=== PATIENT | female | born 1990 | race Caucasian/White ===

== ENCOUNTER 2022-02-02 14:44 | Inpatient (IN) | payer MEDICAID, OTHER ==
[~2022-02-02] VITALS: Ht 175.3 cm; Wt 78.5 kg
[2022-02-02] MEDS ORDERED: LORazepam 2 MG TABLET PO ONE (16:30)
[2022-02-02 16:46] LABS: COVID AG,FIA SOURCE NASOPHARYNGEAL
[2022-02-02 16:58] LABS: AMPHET/METH SCREEN,URINE NEGATIVE (NEGATIVE); BARBITURATE SCREEN, URINE NEGATIVE (NEGATIVE); BENZODIAZEPINES SCREEN,URINE NEGATIVE (NEGATIVE); CANNABINOID SCREEN,URINE NEGATIVE (NEGATIVE); COCAINE SCREEN,URINE NEGATIVE (NEGATIVE); METHADONE SCREEN, URINE NEGATIVE (NEGATIVE); OPIATE SCREEN,URINE NEGATIVE (NEGATIVE); PHENCYCLIDINE SCREEN,URINE NEGATIVE (NEGATIVE)
[2022-02-02 17:00] LABS: BASOPHILS % (AUTO) 2.2 % (0.0-2.0); EOSINOPHILS % (AUTO) 3.5 % (1.0-6.0); HEMATOCRIT 42.4 % (41-53); HEMOGLOBIN 14.6 g/dL (13.5-17.5); LYMPHOCYTES # (AUTO) 1.6 K/uL (1.0-4.8); MEAN CORPUSCULAR HEMOGLOBIN 30.8 pg (26.0-34.0); MEAN CORPUSCULAR HGB CONC 34.5 G/dL (31.0-37.0); MEAN CORPUSCULAR VOLUME 89 fL (80-100); MONOCYTES # (AUTO) 0.5 K/uL (0.1-1.0); MONOCYTES % (AUTO) 5.6 % (2.0-9.0); NEUTROPHILS # (AUTO) 5.9 K/uL (1.8-7.7); NEUTROPHILS % (AUTO) 69.7 % (40.0-70.0); PLATELET COUNT (AUTO) 212 K/uL (150-450); RED BLOOD CELL COUNT(AUTO) 4.75 MIL/uL (4.50-5.90); RED CELL DISTRIBUTION WIDTH 12.6 % (11.5-14.5)
[2022-02-02 17:08] LABS: ANION GAP 7 mmol/L (8-16); CALCIUM, TOTAL 9.4 mg/dL (8.8-10.5); CARBON DIOXIDE 27 mmol/L (22-29); CHLORIDE 103 mmol/L (98-107); CREATININE 0.88 mg/dL (0.60-1.30); GLOMERULAR FILTR. RATE CALC > 60 mL/min (>60); GLUCOSE,RANDOM 96 mg/dL (70-110); POTASSIUM 3.8 mmol/L (3.5-5.1); SODIUM SERUM 137 mmol/L (136-145); UREA NITROGEN, BLOOD 14 mg/dL (7-18)
[2022-02-02 17:14] LABS: ALANINE AMINOTRANSFERASE 29 U/L (12-78); ALBUMIN 4.2 g/dL (3.4-5.0); ALKALINE PHOSPHATASE 52 U/L (46-116); ASPARTATE AMINOTRANSFERASE 19 U/L (15-37); BILIRUBIN,TOTAL 0.3 mg/dL (0.1-1.0); TOTAL PROTEIN, SERUM 7.1 g/dL (6.4-8.2)
[2022-02-02 17:16] LABS: VALPROIC ACID < 3 mcg/mL (50-100)
[2022-02-02 17:17] LABS: LITHIUM 0.25 mmol/L (0.60-1.20)
[2022-02-02] MEDS ORDERED: HALOPERIDOL 5 MG TABLET PO PRN (17:30)
[2022-02-02] MEDS ORDERED: ZOLPIDEM TARTRATE 10 MG TABLET PO PRN (17:30)
[2022-02-02] MEDS ORDERED: MELA5TAB21 PO (17:45)
[2022-02-02] MEDS ORDERED: HYDR-4527 PO (17:45)
[2022-02-02] MEDS ORDERED: LITH450CRT PO (17:45)
[2022-02-02] MEDS ORDERED: ESTR2TAB6 PO (17:45)
[2022-02-02] MEDS ORDERED: FINA-27 PO (17:45)
[2022-02-02 20:22] VITALS: BP 101/61
[2022-02-02] MEDS ORDERED: PNEUMOCOCCAL VACCINE POLYVALENT 0.5 ML VIAL [PPSV23] IM. ONE (20:30)
[2022-02-03 00:51] VITALS: BP 103/62
[2022-02-03 08:03] LABS: CHOL/HDL RATIO 3.5 (4.2-7.3); FREE T4 (FREE THYROXINE) 0.88 ng/dL (0.76-1.46); THYROID STIMULATING HORMONE 0.95 uIU/mL (0.36-3.74)
[2022-02-03] MEDS ORDERED: DiphenhydrAMINE HCL 50 MG/ML VIAL ONE (10:54)
[2022-02-03] MEDS ORDERED: ChlorproMAZINE HCL 50 MG/2 ML AMP ONE (10:54)
[2022-02-03] MEDS ORDERED: LORazepam 2 MG/ML VIAL ONE (10:54)
[2022-02-03] MEDS ORDERED: DiphenhydrAMINE HCL 50 MG/ML VIAL IM ONE (11:00)
[2022-02-03] MEDS ORDERED: LORazepam 2 MG/ML VIAL IM ONE (11:00)
[2022-02-03] MEDS ORDERED: ChlorproMAZINE HCL 50 MG/2 ML AMP IM ONE (11:00)
[2022-02-03] MEDS: FINASTERIDE 5 MG TABLET PO SCH (12:31)
[2022-02-03] MEDS: ESTRADIOL 1 MG TABLET PO SCH (12:31)
[2022-02-03] MEDS: LITHIUM CARBONATE 450 MG ER TABLET PO SCH ×2 (12:31→16:19)
[2022-02-03 13:18] VITALS: BP 115/68
[2022-02-03] MEDS: MELATONIN 5 MG TABLET PO SCH (20:15)
[2022-02-03] MEDS ORDERED: ONDANSETRON HCL 4 MG TABLET PO PRN (21:15)
[2022-02-03] MEDS ORDERED: NICOTINE 14 MG/24 HOUR PATCH TD PRN (21:15)
[2022-02-03] MEDS ORDERED: CloNIDine HCL 0.1 MG TABLET PO PRN (21:15)
[2022-02-03] MEDS ORDERED: GuaiFENesin/D-METHORPHAN [SUGAR-FREE] 200-20MG/10 ML SYRUP UDCUP PO PRN (21:15)
[2022-02-03] MEDS ORDERED: ACETAMINOPHEN 325 MG TABLET PO PRN (21:15)
[2022-02-03] MEDS ORDERED: MAG HYDROX/AL HYDROX/SIMETH ES 30 ML SUSPENSION UDCUP PO PRN (21:15)
[2022-02-03] MEDS ORDERED: ALBUTEROL SULFATE HFA 90 MCG/PUFF 8 GM INHALER IH PRN (21:15)
[2022-02-03] MEDS ORDERED: LOPERAMIDE HCL 2 MG CAPSULE PO PRN (21:15)
[2022-02-03] MEDS ORDERED: MAGNESIUM HYDROXIDE SUSPENSION 30 ML UDCUP PO PRN (21:15)
[2022-02-03] MEDS ORDERED: PETROLATUM,WHITE 28 GM JELLY TP PRN (21:15)
[2022-02-03] MEDS ORDERED: IBUPROFEN 400 MG TABLET PO PRN (21:15)
[2022-02-03] MEDS ORDERED: DOCUSATE SODIUM 100 MG CAPSULE PO PRN (21:15)
[2022-02-04] MEDS ORDERED: DiphenhydrAMINE HCL 50 MG/ML VIAL IM ONE ×2 (04:30→17:45)
[2022-02-04] MEDS ORDERED: ChlorproMAZINE HCL 50 MG/2 ML AMP IM ONE ×2 (04:30→17:45)
[2022-02-04] MEDS ORDERED: LORazepam 2 MG/ML VIAL IM ONE ×2 (04:30→17:45)
[2022-02-04] MEDS: FINASTERIDE 5 MG TABLET PO SCH (08:40)
[2022-02-04] MEDS: LITHIUM CARBONATE 450 MG ER TABLET PO SCH ×2 (08:40→17:00)
[2022-02-04] MEDS: ESTRADIOL 1 MG TABLET PO SCH (08:40)
[2022-02-04] MEDS: LORazepam 2 MG TABLET PO PRN (08:43)
[2022-02-04 10:57] VITALS: BP 118/67
[2022-02-04 14:21] VITALS: BP 129/71
[2022-02-04 16:18] VITALS: BP 100/63
[2022-02-04] MEDS: QUEtiapine FUMARATE 200 MG TABLET PO SCH (21:00)
[2022-02-04] MEDS: MELATONIN 5 MG TABLET PO SCH (21:00)
[2022-02-05] MEDS: LORazepam 2 MG TABLET PO PRN ×4 (02:37→16:33)
[2022-02-05] MEDS: LITHIUM CARBONATE 450 MG ER TABLET PO SCH ×2 (08:14→16:33)
[2022-02-05] MEDS: ESTRADIOL 1 MG TABLET PO SCH (08:14)
[2022-02-05] MEDS: FINASTERIDE 5 MG TABLET PO SCH (08:14)
[2022-02-05 08:16] VITALS: BP 119/73
[2022-02-05 16:05] VITALS: BP 132/76
[2022-02-05] MEDS: QUEtiapine FUMARATE 200 MG TABLET PO SCH (21:00)
[2022-02-05] MEDS: MELATONIN 5 MG TABLET PO SCH (21:00)
[2022-02-06] MEDS: LORazepam 2 MG TABLET PO PRN ×3 (06:37→16:40)
[2022-02-06] MEDS: FINASTERIDE 5 MG TABLET PO SCH (08:07)
[2022-02-06] MEDS: ESTRADIOL 1 MG TABLET PO SCH (08:07)
[2022-02-06] MEDS: LITHIUM CARBONATE 450 MG ER TABLET PO SCH ×2 (08:07→16:40)
[2022-02-06 08:19] VITALS: BP 120/71
[2022-02-06] MEDS: MELATONIN 5 MG TABLET PO SCH (20:12)
[2022-02-06] MEDS: QUEtiapine FUMARATE 200 MG TABLET PO SCH (20:12)
[2022-02-07] MEDS: LORazepam 2 MG TABLET PO PRN ×2 (08:22→15:57)
[2022-02-07 08:43] VITALS: BP 151/86
[2022-02-07] MEDS: FINASTERIDE 5 MG TABLET PO SCH (09:10)
[2022-02-07] MEDS: ESTRADIOL 1 MG TABLET PO SCH (09:10)
[2022-02-07] MEDS: LITHIUM CARBONATE 450 MG ER TABLET PO SCH ×2 (09:10→17:24)
[2022-02-07 16:12] VITALS: BP 139/88
[2022-02-07] MEDS: QUEtiapine FUMARATE 200 MG TABLET PO SCH ×2 (20:18→20:23)
[2022-02-07] MEDS: MELATONIN 5 MG TABLET PO SCH (20:18)
[2022-02-08] MEDS: LITHIUM CARBONATE 450 MG ER TABLET PO SCH ×2 (08:36→17:10)
[2022-02-08] MEDS: ESTRADIOL 1 MG TABLET PO SCH (08:37)
[2022-02-08] MEDS: FINASTERIDE 5 MG TABLET PO SCH (08:37)
[2022-02-08] MEDS: BACITRACIN 28 GM OINTMENT TP SCH ×2 (09:58→15:58)
[2022-02-08] MEDS: LORazepam 2 MG TABLET PO PRN (15:58)
[2022-02-08 16:36] VITALS: BP 126/76
[2022-02-08] MEDS: MELATONIN 5 MG TABLET PO SCH (20:24)
[2022-02-08] MEDS: QUEtiapine FUMARATE 200 MG TABLET PO SCH (20:24)
[2022-02-09 07:12] LABS: COVID AG,FIA SOURCE NASAL SWAB
[2022-02-09 08:19] VITALS: BP 142/90
[2022-02-09] MEDS: BACITRACIN 28 GM OINTMENT TP SCH (09:17)
[2022-02-09] MEDS: ESTRADIOL 1 MG TABLET PO SCH (09:17)
[2022-02-09] MEDS: FINASTERIDE 5 MG TABLET PO SCH (09:17)
[2022-02-09] MEDS: LITHIUM CARBONATE 450 MG ER TABLET PO SCH (09:17)
[2022-02-09] MEDS ORDERED: ESTR2TAB6 PO (13:51)
[2022-02-09] MEDS ORDERED: FINA-27 PO (13:51)
[2022-02-09] MEDS ORDERED: MELA5TAB21 PO (13:51)
[2022-02-09] MEDS ORDERED: LITH450CRT PO (13:51)
== END 2022-02-09 15:00 | disposition home or self-care (01) | DRG 750 ==
LOC: EMS 14:44 → B2S 18:16 → EDSEX 18:16 → 3EC 02-04 13:11
PROVIDERS: ADMIT Psychiatry & Neurology Psychiatry; ATTEND Psychiatry & Neurology Psychiatry
DX: F25.0 Schizoaffective disorder, bipolar type (principal); G93.40 Encephalopathy, unspecified; R45.851 Suicidal ideations; Z59.00 Homelessness unspecified; F60.3 Borderline personality disorder; K59.00 Constipation, unspecified; Z20.822 Contact with and (suspected) exposure to COVID-19; G47.00 Insomnia, unspecified; F99 Mental disorder, not otherwise specified; Z28.9 Immunization not carried out for unspecified reason; Z88.8 Allergy status to other drugs, medicaments and biological substances; Z88.2 Allergy status to sulfonamides; F64.0 Transsexualism
CPT/HCPCS: 80053; 80061; 80164; 80178; 84439; 84443; 85025; 99285; G0480; J1200; J2060; J3230; Q9967

== ENCOUNTER 2023-01-19 20:04 | Emergency (ER) | payer MEDICAID, OTHER ==
[~2023-01-19] VITALS: Ht 172.7 cm; Wt 72.7 kg
[~2023-01-19 20:04] MED LIST: ESTR2TAB6 PO; FINA-27 PO; LITH450CRT PO; MELA5TAB21 PO
[2023-01-19 20:13] VITALS: BP 116/80
[2023-01-19] MEDS ORDERED: PROG100C24 PO (20:16)
[2023-01-19] MEDS ORDERED: ESTROGEN PO (20:16)
[2023-01-19] MEDS ORDERED: SPIR-37 PO (20:16)
== END 2023-01-20 04:16 | disposition home or self-care (01) ==
LOC: EMS 20:04
DX: Z87.890 Personal history of sex reassignment (principal); Z00.00 Encounter for general adult medical examination without abnormal findings; Z88.2 Allergy status to sulfonamides; Z88.8 Allergy status to other drugs, medicaments and biological substances
CPT/HCPCS: 99283

== ENCOUNTER 2023-03-04 21:08 | Emergency (ER) | payer OTHER ==
[~2023-03-04] VITALS: Ht 175.3 cm; Wt 72.7 kg
[~2023-03-04 21:08] MED LIST changes: -ESTR2TAB6 PO; +ESTROGEN PO; -FINA-27 PO; -LITH450CRT PO; -MELA5TAB21 PO; +PROG100C24 PO; +SPIR-37 PO
[2023-03-04] MEDS ORDERED: SODIUM CHLORIDE 0.9% 1,000 ML IV ONE (22:00)
[2023-03-04 22:14] LABS: BASOPHILS % (AUTO) 0.3 % (0.0-2.0); EOSINOPHILS % (AUTO) 1.2 % (1.0-6.0); HEMATOCRIT 39.4 % (36-46); HEMOGLOBIN 13.4 g/dL (12.0-16.0); LYMPHOCYTES # (AUTO) 0.6 K/uL (1.0-4.8); LYMPHOCYTES % (AUTO) 7.9 % (22.0-44.0); MEAN CORPUSCULAR HEMOGLOBIN 29.8 pg (26.0-34.0); MEAN CORPUSCULAR VOLUME 88 fL (80-100); MONOCYTES # (AUTO) 0.8 K/uL (0.1-1.0); MONOCYTES % (AUTO) 10.2 % (2.0-9.0); NEUTROPHILS # (AUTO) 6.3 K/uL (1.8-7.7); NEUTROPHILS % (AUTO) 80.4 % (40.0-70.0); PLATELET COUNT (AUTO) 201 K/uL (150-450); RED CELL DISTRIBUTION WIDTH 13.8 % (11.5-14.5)
[2023-03-04] MEDS ORDERED: ONDANSETRON HCL 4 MG TABLET PO ONE (22:15)
[2023-03-04 22:20] LABS: ANION GAP 11 mmol/L (8-16); CALCIUM, TOTAL 8.7 mg/dL (8.8-10.5); CARBON DIOXIDE 24 mmol/L (22-29); CHLORIDE 101 mmol/L (98-107); CREATININE 0.82 mg/dL (0.60-1.30); GLOMERULAR FILTR. RATE CALC > 60 mL/min (>60); GLUCOSE,RANDOM 95 mg/dL (70-110); POTASSIUM 3.7 mmol/L (3.5-5.1); SODIUM SERUM 136 mmol/L (136-145); UREA NITROGEN, BLOOD 11 mg/dL (7-18)
[2023-03-04 22:25] LABS: ALANINE AMINOTRANSFERASE 20 U/L (12-78); ALBUMIN 4.1 g/dL (3.4-5.0); ALKALINE PHOSPHATASE 67 U/L (46-116); ASPARTATE AMINOTRANSFERASE 19 U/L (15-37); BILIRUBIN,TOTAL 0.8 mg/dL (0.1-1.0); LIPASE 60 U/L (73-393); TOTAL PROTEIN, SERUM 7.4 g/dL (6.4-8.2)
[2023-03-04 22:26] LABS: APPEARANCE,URINE CLEAR (CLEAR); BILIRUBIN,URINE NEGATIVE (NEGATIVE); GLUCOSE, URINE (UA) NEGATIVE (NEGATIVE); LEUKOCYTE ESTERASE ,URINE NEGATIVE (NEGATIVE); NITRATE,URINE NEGATIVE (NEGATIVE); OCCULT BLOOD,URINE NEGATIVE (NEGATIVE); PH,URINE 5.5 (5.0-8.0); PROTEIN,URINE NEGATIVE (NEGATIVE); SPECIFIC GRAVITIY, URINE 1.008 (1.003-1.030); UROBILINOGEN,URINE <=1.0 mg/dL (<=1.0)
[2023-03-04] MEDS ORDERED: IBUPROFEN 600 MG TABLET PO ONE (23:00)
[2023-03-05] VITALS: BP 124/73
[2023-03-05] MEDS ORDERED: ONDA-104 PO (00:11)
== END 2023-03-05 01:18 | disposition home or self-care (01) ==
LOC: EMS 21:08
DX: R10.9 Unspecified abdominal pain (principal); K52.9 Noninfective gastroenteritis and colitis, unspecified; Z88.2 Allergy status to sulfonamides; Z88.8 Allergy status to other drugs, medicaments and biological substances
CPT/HCPCS: 99284; 80053; 81003; 83690; 85025; 36415; 93005; Q0162

== ENCOUNTER 2023-03-14 04:08 | Emergency (ER) | payer OTHER ==
[~2023-03-14] VITALS: Ht 175.3 cm; Wt 79.1 kg
[~2023-03-14 04:08] MED LIST changes: +ONDA-104 PO
[2023-03-14 05:49] LABS: APPEARANCE,URINE CLEAR (CLEAR); BILIRUBIN,URINE NEGATIVE (NEGATIVE); GLUCOSE, URINE (UA) NEGATIVE (NEGATIVE); KETONES,URINE NEGATIVE (NEGATIVE); LEUKOCYTE ESTERASE ,URINE NEGATIVE (NEGATIVE); NITRATE,URINE NEGATIVE (NEGATIVE); OCCULT BLOOD,URINE NEGATIVE (NEGATIVE); PH,URINE 5.5 (5.0-8.0); PROTEIN,URINE TRACE mg/dL (NEGATIVE); SPECIFIC GRAVITIY, URINE 1.035 (1.003-1.030); UROBILINOGEN,URINE <=1.0 mg/dL (<=1.0)
[2023-03-14 05:55] LABS: AMPHET/METH SCREEN,URINE NEGATIVE (NEGATIVE); BARBITURATE SCREEN, URINE NEGATIVE (NEGATIVE); BENZODIAZEPINES SCREEN,URINE NEGATIVE (NEGATIVE); CANNABINOID SCREEN,URINE NEGATIVE (NEGATIVE); COCAINE SCREEN,URINE NEGATIVE (NEGATIVE); METHADONE SCREEN, URINE NEGATIVE (NEGATIVE); OPIATE SCREEN,URINE NEGATIVE (NEGATIVE); PHENCYCLIDINE SCREEN,URINE NEGATIVE (NEGATIVE)
[2023-03-14 06:02] LABS: BACTERIA,URINE None Seen /HPF (None Seen); MUCUS,URINE Moderate LPF (None Seen); RBC,URINE None Seen /HPF (0-2); SQUAMOUS EPITHELIAL CELL,UR Moderate /LPF (None Seen); WBC,URINE 0-2 /HPF (0-5)
[2023-03-14 06:35] VITALS: BP 138/72
== END 2023-03-14 07:57 | disposition home or self-care (01) ==
LOC: EMS 04:09
DX: R30.0 Dysuria (principal); F17.210 Nicotine dependence, cigarettes, uncomplicated; F20.9 Schizophrenia, unspecified; F31.9 Bipolar disorder, unspecified
CPT/HCPCS: 80307; 81001; 87491; 87591; 99283

== ENCOUNTER 2023-06-15 19:53 | Emergency (ER) | payer OTHER ==
[~2023-06-15] VITALS: Ht 172.7 cm; Wt 79.2 kg
[2023-06-15 21:00] LABS: BASOPHILS % (AUTO) 0.9 % (0.0-2.0); EOSINOPHILS % (AUTO) 4.8 % (1.0-6.0); HEMATOCRIT 42.2 % (36-46); HEMOGLOBIN 14.4 g/dL (12.0-16.0); LYMPHOCYTES # (AUTO) 1.7 K/uL (1.0-4.8); LYMPHOCYTES % (AUTO) 17.1 % (22.0-44.0); MEAN CORPUSCULAR HEMOGLOBIN 30.6 pg (26.0-34.0); MEAN CORPUSCULAR HGB CONC 34.2 G/dL (31.0-37.0); MEAN CORPUSCULAR VOLUME 90 fL (80-100); MONOCYTES # (AUTO) 0.6 K/uL (0.1-1.0); MONOCYTES % (AUTO) 6.5 % (2.0-9.0); NEUTROPHILS # (AUTO) 6.8 K/uL (1.8-7.7); NEUTROPHILS % (AUTO) 70.7 % (40.0-70.0); PLATELET COUNT (AUTO) 206 K/uL (150-450); RED BLOOD CELL COUNT(AUTO) 4.71 MIL/uL (4.00-5.20); RED CELL DISTRIBUTION WIDTH 13.2 % (11.5-14.5)
[2023-06-15 21:13] LABS: ANION GAP 12 mmol/L (8-16); CALCIUM, TOTAL 9.3 mg/dL (8.8-10.5); CARBON DIOXIDE 25 mmol/L (22-29); CHLORIDE 102 mmol/L (98-107); CREATININE 0.94 mg/dL (0.60-1.30); GLOMERULAR FILTR. RATE CALC > 60 mL/min (>60); GLUCOSE,RANDOM 101 mg/dL (70-110); POTASSIUM 3.7 mmol/L (3.5-5.1); SODIUM SERUM 139 mmol/L (136-145)
[2023-06-15 21:20] LABS: ALANINE AMINOTRANSFERASE 21 U/L (12-78); ALBUMIN 4.4 g/dL (3.4-5.0); ALKALINE PHOSPHATASE 79 U/L (46-116); ASPARTATE AMINOTRANSFERASE 21 U/L (15-37); BILIRUBIN,TOTAL 0.4 mg/dL (0.1-1.0)
[2023-06-15 21:41] VITALS: BP 140/71; PULSE 63; RESP 20; TEMP 98.1
[2023-06-15 21:44] LABS: AMPHET/METH SCREEN,URINE NEGATIVE (NEGATIVE); BARBITURATE SCREEN, URINE NEGATIVE (NEGATIVE); BENZODIAZEPINES SCREEN,URINE NEGATIVE (NEGATIVE); CANNABINOID SCREEN,URINE NEGATIVE (NEGATIVE); COCAINE SCREEN,URINE NEGATIVE (NEGATIVE); METHADONE SCREEN, URINE NEGATIVE (NEGATIVE); OPIATE SCREEN,URINE NEGATIVE (NEGATIVE); PHENCYCLIDINE SCREEN,URINE NEGATIVE (NEGATIVE)
[2023-06-16 01:15] LABS: COVID AG,FIA SOURCE NASOPHARYNGEAL
== END 2023-06-16 06:13 | disposition home or self-care (01) ==
LOC: EMS 19:54
DX: R45.851 Suicidal ideations (principal); F60.3 Borderline personality disorder; F31.9 Bipolar disorder, unspecified; Z20.822 Contact with and (suspected) exposure to COVID-19; Z59.00 Homelessness unspecified
CPT/HCPCS: 99285; 87426; 80053; 84703; 85025; 36415; 80307; G0480

== ENCOUNTER 2023-09-24 00:12 | Emergency (ER) | payer MEDICARE, OTHER ==
[~2023-09-24] VITALS: Ht 175.3 cm; Wt 90.0 kg
[2023-09-24] MEDS ORDERED: KETOROLAC TROMETHAMINE 30 MG/ML VIAL IM ONE (01:15)
[2023-09-24 01:33] VITALS: BP 126/70; PULSE 68; RESP 13; TEMP 98.3
== END 2023-09-24 03:43 | disposition home or self-care (01) ==
LOC: EDSEX 00:14 → EMS 00:14
DX: M25.512 Pain in left shoulder (principal); G89.29 Other chronic pain; F41.9 Anxiety disorder, unspecified; F31.9 Bipolar disorder, unspecified; F17.210 Nicotine dependence, cigarettes, uncomplicated; F64.0 Transsexualism
CPT/HCPCS: 99283; 96372; J1885

== ENCOUNTER 2024-03-12 20:12 | Emergency (ER) | payer MEDICARE, MEDICAID ==
[~2024-03-12] VITALS: Ht 172.7 cm; Wt 85.9 kg
[2024-03-12 20:19] VITALS: BP 123/85; PULSE 73; RESP 16; TEMP 98.7
== END 2024-03-12 22:04 | disposition left against medical advice (07) ==
LOC: EDSEX → EMS 20:13
DX: M25.512 Pain in left shoulder (principal); Z53.21 Procedure and treatment not carried out due to patient leaving prior to being seen by health care provider

== ENCOUNTER 2024-03-13 16:02 | Emergency (ER) | payer MEDICARE, MEDICAID | END 2024-03-13 17:11 | disposition left against medical advice (07) | LOC: EDSEX → EMS 16:03 | DX: M25.512 Pain in left shoulder (principal); Z53.21 Procedure and treatment not carried out due to patient leaving prior to being seen by health care provider ==

== ENCOUNTER 2024-03-15 01:12 | Emergency (ER) | payer MEDICARE, MEDICAID ==
[~2024-03-15] VITALS: Ht 172.7 cm; Wt 85.0 kg
[2024-03-15 01:30] VITALS: BP 142/56; PULSE 70; RESP 18; TEMP 98
== END 2024-03-15 06:04 | disposition home or self-care (01) ==
LOC: EMS 01:13 → EDSEX 01:13 → EMS 06:04
DX: M25.512 Pain in left shoulder (principal); F41.9 Anxiety disorder, unspecified; F31.9 Bipolar disorder, unspecified; F17.210 Nicotine dependence, cigarettes, uncomplicated
CPT/HCPCS: 99283